=== PATIENT | female | born 1965 | race African-American/Black ===

== ENCOUNTER 2018-05-24 20:40 | Emergency (ER) | payer MEDICARE, BC ==
[2018-05-24] MEDS: PERCOCET 5MG/325MG TAB PO (21:00)
[2018-05-24] MEDS: IBUPROFEN 400 MG TAB PO (21:00)
== END 2018-05-24 21:55 | disposition home or self-care (01) ==
LOC: M ED 20:40
DX: S70.01XA Contusion of right hip, initial encounter (principal); S93.601A Unspecified sprain of right foot, initial encounter; S83.91XA Sprain of unspecified site of right knee, initial encounter; R93.7 Abnormal findings on diagnostic imaging of other parts of musculoskeletal system; W18.2XXA Fall in (into) shower or empty bathtub, initial encounter; Y92.091 Bathroom in other non-institutional residence as the place of occurrence of the external cause
CPT/HCPCS: 73564